=== PATIENT | male | born 1955 | race Caucasian/White ===

== ENCOUNTER → 2023-07-06 09:02 | Outpatient (BNVA) | payer MEDICARE, SELFPAY | PROVIDERS: PCP Internal Medicine; Referring Provider Internal Medicine; Visit Provider Physical Therapy Assistant | DX: L30.8 Other specified dermatitis (principal) | CPT/HCPCS: 11104; 11105; 99203 ==

== ENCOUNTER 2023-07-06 09:42 | Outpatient (REF) | payer MEDICARE, SELFPAY ==
--- NOTE | 2023-07-06 09:48 | SKI_PTH ---
PATIENT: Sean Sy LOC: [facility] U#:[id number] AGE/SX: 68/M ROOM: RE07/06/[address]: DENISSE Loaiza : 1955 BED: DIS: 07/06/2023 SPEC #: [id number] RECD: 07/06/23 12:50 STATUS: TALA SINGH #: [id number] MARY: 07/06/23 09:[address]: Chely Taylor DEPT: Surgical Specimen RECD BY: Luisa Lundberg ENTERED: 07/06/23 12:52 SP TYPE: WILNER [facility]IL[place] DR: Shoshana Dubose Tissues: 1 - SKIN BIOPSY(SHAVE/PUNCH) 2 - SKIN BIOPSY(SHAVE/PUNCH) Procedures: SKIN LEVEL 4 Comments: [id number]
== END 2023-07-06 09:43 | disposition home or self-care (01) ==
LOC: LBN 09:42
PROVIDERS: PCP Internal Medicine; Visit Provider Physical Therapy Assistant
DX: L30.8 Other specified dermatitis (principal)
CPT/HCPCS: 88305